=== PATIENT | female | born 1950 | race Caucasian/White ===

== ENCOUNTER → 2023-09-06 07:02 | Outpatient (REF) | payer MEDICARE, OTHER, SELFPAY ==
[2023-09-06 08:44] LABS: Blood Urea Nitrogen 36 mg/dl (7-17); Calcium 9.5 mg/dl (8.4-10.2); Carbon Dioxide 27 mmol/L (22-30); Chloride 101 mmol/L (98-107); Glucose 107 mg/dl (70-99); HDL Cholesterol 79 mg/dl; LDL Cholesterol, Calculated 86 mg/dl; Potassium 5.3 mmol/L (3.5-5.1); Sodium 138 mmol/L (135-145); Total Cholesterol 186 mg/dl (50-199); Triglyceride 105 mg/dl (10-149); Very Low Density Lipoprotein 21 mg/dl (0-30); eGFR > 60.00
== END ==
LOC: REG 07:02
PROVIDERS: ATTENDING PHYSICIAN Internal Medicine Cardiovascular Disease; FAMILY PHYSICIAN Physician Assistant Medical
DX: I10 Essential (primary) hypertension (principal)
CPT/HCPCS: 36415; 80048; 80061

== ENCOUNTER → 2023-09-20 14:37 | Outpatient (REF) | payer MEDICARE, OTHER, SELFPAY ==
[2023-09-20 15:53] LABS: Blood Urea Nitrogen 43 mg/dl (7-17); Calcium 9.3 mg/dl (8.4-10.2); Carbon Dioxide 27 mmol/L (22-30); Chloride 104 mmol/L (98-107); Glucose 102 mg/dl (70-99); Potassium 5.2 mmol/L (3.5-5.1); Sodium 140 mmol/L (135-145); eGFR > 60.00
== END ==
LOC: REG 14:37
PROVIDERS: ATTENDING PHYSICIAN Internal Medicine Cardiovascular Disease; FAMILY PHYSICIAN Physician Assistant Medical
DX: I10 Essential (primary) hypertension (principal)
CPT/HCPCS: 36415; 80048

== ENCOUNTER → 2024-02-05 11:51 | Outpatient (REF) | payer MEDICARE, OTHER, SELFPAY | LOC: DHSLP 11:51 | PROVIDERS: ATTENDING PHYSICIAN Internal Medicine Critical Care Medicine; FAMILY PHYSICIAN Physician Assistant Medical | DX: G47.33 Obstructive sleep apnea (adult) (pediatric) (principal) | CPT/HCPCS: 95800 ==

== ENCOUNTER → 2024-08-30 08:22 | Outpatient (REF) | payer MEDICARE, OTHER, SELFPAY ==
[2024-08-30 09:28] LABS: % Basophils 0.6 % (0-2); % Eosinophils 2.4 % (0-6); % Immature Granulocytes 0.3 % (0-0.5); % Lymphocytes 23.4 % (20.5-51.1); % Monocytes 8.1 % (1.7-9.3); % Neutrophils 65.2 % (42.2-75.2); Absolute Eosinophils 0.2 10^3/uL (0-0.7); Absolute Lymphocytes 1.7 10^3/uL (1.2-3.4); Absolute Monocytes 0.6 10^3/uL (0.1-0.6); Absolute Neutrophils 4.7 10^3/uL (1.4-6.5); Hematocrit 38.4 % (37.0-47.0); Mean Corp Hgb Conc. 33.9 g/dL (33.0-37.0); Mean Corpuscular Hgb 33.4 pg (27.0-31.0); Mean Corpuscular Volume 98.7 fL (81.0-99.0); Nucleated Red Blood Cells % 0 %; Platelet Count 229 10^3/uL (130-400); Red Blood Cell Count 3.89 10^6/uL (4.20-5.40); Red Cell Dist. Width 13.3 % (11.5-14.5); White Blood Cell Count 7.1 10^3/uL (4.8-10.8)
[2024-08-30 09:51] LABS: ALT (SGPT) 36 U/L (0-35); AST (SGOT) 30 U/L (14-36); Albumin 4.2 g/dl (3.5-5.0); Alkaline Phosphatase 65 U/L (38-126); Blood Urea Nitrogen 31 mg/dl (7-17); Calcium 9.3 mg/dl (8.4-10.2); Carbon Dioxide 29 mmol/L (22-30); Chloride 108 mmol/L (98-107); Glucose 105 mg/dl (70-99); HDL Cholesterol 79 mg/dl; LDL Cholesterol, Calculated 57 mg/dl; Potassium 5.9 mmol/L (3.5-5.1); Sodium 140 mmol/L (135-145); Total Bilirubin 0.6 mg/dl (0.2-1.3); Total Cholesterol 159 mg/dl (50-199); Total Protein 7.3 g/dl (6.3-8.2); Triglyceride 118 mg/dl (10-149); Very Low Density Lipoprotein 23 mg/dl (0-30); eGFR > 60.00
[2024-08-30 10:02] LABS: NT-proBNP 46.1 pg/ml
[2024-08-30 10:20] LABS: TSH Reflex To Free T4 6.68 uIU/ml (0.47-4.68)
[2024-08-30 10:49] LABS: Free T4 1.03 ng/dl (0.78-2.19)
== END ==
LOC: REG 08:22
PROVIDERS: ATTENDING PHYSICIAN Physician Assistant; FAMILY PHYSICIAN Physician Assistant Medical; REFERRING PHYSICIAN Internal Medicine Cardiovascular Disease
DX: M81.0 Age-related osteoporosis without current pathological fracture (principal); Z51.81 Encounter for therapeutic drug level monitoring; Z00.00 Encounter for general adult medical examination without abnormal findings; I10 Essential (primary) hypertension; E78.00 Pure hypercholesterolemia, unspecified; E66.01 Morbid (severe) obesity due to excess calories; M19.90 Unspecified osteoarthritis, unspecified site; R01.1 Cardiac murmur, unspecified
CPT/HCPCS: 36415; 80053; 80061; 82306; 83880; 84439; 84443; 85025

== ENCOUNTER → 2024-09-04 15:02 | Outpatient (REF) | payer MEDICARE, OTHER, SELFPAY ==
[2024-09-04 16:08] LABS: Blood Urea Nitrogen 45 mg/dl (7-17); Calcium 9.2 mg/dl (8.4-10.2); Carbon Dioxide 28 mmol/L (22-30); Glucose 118 mg/dl (70-99); Sodium 142 mmol/L (135-145); eGFR 52.73
[2024-09-04 16:14] LABS: Chloride 106 mmol/L (98-107)
[2024-09-05 09:46] LABS: Glycohemoglobin (HgbA1c) 5.6 % (4.0-5.6)
== END ==
LOC: REG 15:02
PROVIDERS: ATTENDING PHYSICIAN Internal Medicine Cardiovascular Disease; FAMILY PHYSICIAN Physician Assistant Medical
DX: E78.5 Hyperlipidemia, unspecified (principal); R73.01 Impaired fasting glucose
CPT/HCPCS: 36415; 80048; 83036

== ENCOUNTER → 2024-09-13 11:18 | Outpatient (REF) | payer MEDICARE, OTHER, SELFPAY ==
[2024-09-13 12:21] LABS: Blood Urea Nitrogen 38 mg/dl (7-17); Calcium 9.9 mg/dl (8.4-10.2); Carbon Dioxide 26 mmol/L (22-30); Chloride 108 mmol/L (98-107); Glucose 117 mg/dl (70-99); Potassium 4.9 mmol/L (3.5-5.1); Sodium 141 mmol/L (135-145); eGFR > 60.00
== END ==
LOC: REG 11:18
PROVIDERS: ATTENDING PHYSICIAN Internal Medicine Cardiovascular Disease; FAMILY PHYSICIAN Physician Assistant Medical
DX: I10 Essential (primary) hypertension (principal)
CPT/HCPCS: 36415; 80048

== ENCOUNTER → 2024-12-01 13:38 | Outpatient (REF) | payer MEDICARE, OTHER, SELFPAY | LOC: HWWDC 13:38 | PROVIDERS: ATTENDING PHYSICIAN Physician Assistant; FAMILY PHYSICIAN Physician Assistant Medical; REFERRING PHYSICIAN Obstetrics & Gynecology | DX: M81.0 Age-related osteoporosis without current pathological fracture (principal); Z12.31 Encounter for screening mammogram for malignant neoplasm of breast | CPT/HCPCS: 77063; 77067; 77080 ==

== ENCOUNTER 2025-02-01 02:59 | Emergency (ER) | payer MEDICARE, OTHER, SELFPAY ==
[2025-02-01] VITALS (9 sets, daily range): BP systolic 100–172; BP diastolic 58–80; BMI 57.7
[2025-02-01 05:30] LABS: Hematocrit 41.1 % (37.0-47.0); Hemoglobin 13.1 g/dL (12.0-16.0); Mean Corp Hgb Conc. 31.9 g/dL (33.0-37.0); Mean Corpuscular Volume 100.7 fL (81.0-99.0); Nucleated Red Blood Cells % 0 %; Platelet Count 241 10^3/uL (130-400); Red Cell Dist. Width 13.5 % (11.5-14.5)
[2025-02-01 05:54] LABS: ALT (SGPT) 34 U/L (0-35); AST (SGOT) 32 U/L (14-36); Albumin 4.3 g/dl (3.5-5.0); Alkaline Phosphatase 65 U/L (38-126); Blood Urea Nitrogen 28 mg/dl (7-17); Calcium 9.8 mg/dl (8.4-10.2); Carbon Dioxide 27 mmol/L (22-30); Chloride 105 mmol/L (98-107); Estimated Creatinine Clearance 78 ml/min; Glucose 124 mg/dl (70-99); Lipase 103 U/L (23-300); Potassium 4.1 mmol/L (3.5-5.1); Sodium 139 mmol/L (135-145); Total Protein 7.7 g/dl (6.3-8.2); eGFR > 60.00
[2025-02-01] MEDS: NSS 1000 IV (06:07)
--- NOTE | 2025-02-01 06:16 | EDRN ---
Patient updated on labs and status to being seen, call ferris in reach. no further complaints
[2025-02-01] MEDS: TORADOL 30 MG IV (09:59)
--- NOTE | 2025-02-01 11:34 | ED.GENMED ---
History of Present Illness
General
Chief Complaint: Abdominal Pain
Source: patient and spouse
Time Seen by Provider: 02/01/25 06:40
History of Present Illness
History of Present Illness:
Note:
CHIEF COMPLAINT(S)
Right-sided abdominal pain.
HISTORY OF PRESENT ILLNESS
The patient is a 74-year-old female who presented with right-sided abdominal pain that began at approximately 1:00 AM. She described the initial pain as severe but noted that it has since decreased in intensity. The pain is primarily located on the
right side. She reported nausea and emesis, which occurred at home when the pain commenced. The last meal she consumed was a steak dinner at around 5:00 PM.
Additional historian
Spouse states that they went out to eat at a restaurant last night
PAST MEDICAL AND SURGICAL HISTORY
The patient has a significant medical history of hypertension and diabetes. She has undergone a hysterectomy.
ADDITIONAL HISTORY OBTAINED FROM SOURCES OTHER THAN THE PATIENT
None specifically mentioned.
SOCIAL DETERMINANTS AFFECTING HEALTH
None specifically mentioned.
ALLERGIES
None reported.
MEDICATIONS
The patient takes diuretics ('water pills').
REVIEW OF SYSTEMS
- Gastrointestinal: Reports right-sided abdominal pain, nausea, and episodes of vomiting.
- Musculoskeletal: Reports leg edema.
PHYSICAL EXAM
General: Alert, no acute distress. Obese
Skin: Warm, dry.
Head: Normocephalic, atraumatic.
Neck: Supple, trachea midline.
Eyes, Ears, Nose, Mouth and Throat: Oral mucosa moist.
Respiratory: No respiratory distress noted.
Gastrointestinal: Mild tenderness noted in the right mid-abdomen. Abdomen nondistended. Negative Hernandez's. McBurney's point nontender
Cardiovascular: Normal peripheral perfusion.
Musculoskeletal: Noted bilateral lower extremity edema.
Neurological: Alert and oriented to person, place, time, and situation. No focal neurological deficit observed.
Psychiatric: Cooperative, appropriate mood and affect.
PROBLEM LIST
Acute: Right-sided abdominal pain, nausea, and vomiting.
Chronic: Hypertension, Diabetes Mellitus.
PLAN
1. Obtain abdominal CT scan to evaluate for possible gallbladder or appendiceal involvement.
2. Administer pain management as needed.
3. Await laboratory results prior to further management.
4. Monitor and address leg edema.
DIFFERENTIAL DIAGNOSIS
The differential diagnosis includes, in no particular order and is not limited to:
1. Cholecystitis
2. Appendicitis
3. Biliary colic
4. Pancreatitis
5. Bowel obstruction
6. Diverticulitis
7. Gastritis
8. Peptic ulcer disease
9. Renal colic
10. Hepatic abscess
CARE-UPDATE
02/01/25 - 11:36
The patient reports significant improvement with resolved pain. Recent ultrasound results indicated no gallstones present. No surgical intervention for gallbladder is required at this stage. Continue current management and monitor for any recurrence
of symptoms.
Disposition:
SUMMARY OF ENCOUNTER
The patient, a 74-year-old female, presented to the emergency department with right-sided abdominal pain that began after a steak dinner the previous evening. She experienced severe pain initially, accompanied by nausea and vomiting. The patients
history of hypertension and diabetes was considered in the evaluation. An abdominal ultrasound was performed, revealing cholelithiasis without any indication of gallbladder wall thickening or biliary tract dilatation, and a negative sonographic
Encinal sign. Laboratory tests including a CBC, CMP, and lipase were normal. Given the patients symptoms and test results, she was managed conservatively without surgical intervention.
DISPOSITION
The patient was discharged after symptom resolution and stabilization.
ASSESSMENT
Right-sided abdominal pain likely secondary to cholelithiasis without acute cholecystitis.
PLAN
1. Discharge with symptom management instructions.
2. Educate the patient on dietary modifications to help prevent future gallbladder attacks.
3. Advise the patient to return if symptoms worsen or new symptoms develop.
INDEPENDENT REVIEW OF LABS AND INTERPRETATION OF TESTS
- My independent review of CBC is normal white count and normal hemoglobin.
- My independent review of CMP is normal.
- My independent review of lipase is normal.
RADIOLOGY RESULTS
- My independent interpretation of the abdominal ultrasound is cholelithiasis without any evidence of gallbladder wall thickening or biliary tract dilatation, and a negative sonographic Encinal sign.
PATIENT EDUCATION AND COUNSELING
Provided education on dietary modifications to reduce the risk of future gallbladder attacks and advised on signs and symptoms that would warrant return to the emergency department.
FOLLOW-UP INSTRUCTIONS
Advised to follow up with primary care physician or a district branch manager for evaluation of cholelithiasis and further management options.
MEDICATION RECONCILIATION
The patient takes diuretics for hypertension.
MEDICAL DECISION MAKING
- Number and Complexity of Problems Addressed: Chronic conditions affecting care include hypertension and diabetes. Differential diagnoses considered were cholecystitis, appendicitis, biliary colic, pancreatitis, bowel obstruction, diverticulitis,
gastritis, peptic ulcer disease, renal colic, and hepatic abscess.
- Data:
Category 1:
- Non-emergency department records reviewed: No external records were reviewed.
- My independent interpretation of abdominal ultrasound confirms cholelithiasis without complications.
Category 2:
- Clinical information was obtained directly from patient history without an independent historian.
- Risk:
Consideration of Admission/Observation: Escalation of care including admission was considered given the complexity and risk of the patients presentation, but ultimately outpatient management with close follow-up was deemed safe due to work-up
reassuring, controlled symptoms, and patients stability.
DIAGNOSIS
Cholelithiasis (ICD-10: K80.20).
Past History
Past History
ED Past Medical History: HTN, Hypercholesterolemia and Hypothyroidism
ED Past Surgical History: None
Social History
Tobacco: Non-smoker
Alcohol: Daily (3-4 glasses wine daily)
Drug: None
Personal:
Living: with family
Phy Exam
Physical Exam
Physical Exam:
.
Course
Orders/Labs/Results
Orders:
Orders
02/01/25 03:21
IV Insert/Care/Rem.- Treatment PRN
02/01/25 05:18
Complete Blood Count/With Diff Urgent
Comprehensive Metabolic Panel Urgent
Lipase Urgent
02/01/25 06:07
0.9% Sodium Chloride 1000 ml [Nss] 1,000 ml IV BOLUS
02/01/25 07:17
CT Abd/Pel (IV only)-DH only Urgent
Comment:
Reason For Exam: R abd pain
02/01/25 07:30
Urinalysis Reflex To Culture Urgent
Date Specimen was Collected: 02/01/25
Time Specimen was Collected: 03:21
02/01/25 08:30
US Abdomen Complete/Upper Urgent
Comment:
Reason For Exam: R sided abd pain
02/01/25 09:56
Ketorolac [Toradol] 30 mg .ROUTE .STK-MED ONE
02/01/25 09:58
Ketorolac [Toradol] 30 mg IV NOW STA
Abnormal Lab Results
02/01/25
05:18
RBC 4.08 L 10^6/uL
(4.20-5.40)
MCV 100.7 H fL
(81.0-99.0)
MCH 32.1 H pg
(27.0-31.0)
MCHC 31.9 L g/dL
(33.0-37.0)
MPV 10.8 H fL
(7.4-10.4)
Absolute Neuts (auto) 7.5 H 10^3/uL
(1.4-6.5)
Absolute Lymphs (auto) 1.0 L 10^3/uL
(1.2-3.4)
Neutrophils % 81.2 H %
(42.2-75.2)
Lymphocytes % 11.0 L %
(20.5-51.1)
BUN 28 H mg/dl
(7-17)
Glucose 124 H mg/dl
(70-99)
02/01/25 05:18
02/01/25 05:18
Vital Signs
Initial and Last Documented VS:
Initial Vital Signs
Temp Pulse Resp BP Pulse Ox
97.3 F 55 26 100/71 97
02/01/25 03:17 02/01/25 03:17 02/01/25 03:17 02/01/25 03:17 02/01/25 03:17
Last Documented Vital Signs
Temp Pulse Resp BP Pulse Ox
97.3 F 55 26 172/71 96
02/01/25 03:17 02/01/25 03:17 02/01/25 03:17 02/01/25 10:00 02/01/25 10:00
*Pulse Oximetry
SaO2: 96
Oxygen Mode of Delivery: Room air
Patient hypoxic: no
*Critical Care Note
Total Time (30-74mins, 75-104mins- exclusive of procedures): Not Applicable
Data Reviewed
Source: patient
ED Attending Note
-
Portions of this chart may have been created with voice recognition software.� Occasional wrong word or��sound alike� substitutions may have occurred due to the inherent limitations of voice recognition software.
Discharge Plan
Departure
Patient Disposition: Home (Routine Discharge)
Date of Disposition: 02/01/25
Time of Disposition: 11:34
Patient with high blood pressure during this ER visit?: Yes
Discharge Problem:
Cholelithiasis
Instructions: Gallstones (DC), BLOOD PRESSURE
Prescriptions:
No Action
losartan 50 mg Tablet
100 mg PO DAILY
atorvastatin 40 mg Tablet
40 mg PO DAILY
levothyroxine 88 mcg Tablet
88 mcg PO DAILY
Vitamin D3
1,250 units PO DAILY
Prolia 60 mg/mL Syringe
60 mg SC [id number]
calcium carbonate [Calcium 600] 600 mg calcium (1,500 mg) Tablet
1,200 mg PO DAILY
amlodipine 5 mg Tablet
5 mg PO DAILY
furosemide
20 mg PO DAILY
metoprolol succinate
25 mg PO DAILY
acetaminophen [Tylenol] 325 mg Tablet
650 mg PO Q6H PRN (Reason: pain)
oxycodone 5 mg Tablet
2.5 mg PO Q4HPRN PRN (Reason: moderate pain) Qty: 0 0RF
oxycodone 5 mg Tablet
5 mg PO Q4HPRN PRN (Reason: severe pain when tolerating PO) Qty: 12 0RF
ibuprofen 600 mg tablet
600 mg PO Q6H PRN (Reason: mild pain) Qty: 1 0RF
Rx Instructions:
ok to take with tylenol. Take with food
Referrals:
Adán Valdez MD [Active, Surgical]
UNKNOWN - PT DOES,NOT KNOW [Family Provider]
Activity Restrictions/Additional Instructions:
Please avoid fatty foods. Please see surgery in the next 1 week for follow-up and reevaluation. Return immediately for worsening pain, fevers, vomiting, intractable pain or any other concerns.
Interventions
Interventions:
*Risk Screen - Suicide Last Done: 02/01/25 03:17
*General Assessment Last Done: 02/01/25 03:17
*Neglect/Abuse Screening Last Done: 02/01/25 03:17
*ED- Fall Risk Assessment Last Done: 02/01/25 03:17
*ED COVID-19 Vaccine History Last Done: 02/01/25 03:17
*ED Influenza Vaccine History Last Done: 02/01/25 03:17
YL-Hhryam-Ddlaiawhty Assessment Last Done: 02/01/25 06:09
Discharge Date and Time
Print Language: YORUBA
== END 2025-02-01 12:00 | disposition home or self-care (01) ==
LOC: EMR 02:59
PROVIDERS: Student in an Organized Health Care Education/Training Program; EMERGENCY PHYSICIAN Emergency Medicine
DX: K80.20 Calculus of gallbladder without cholecystitis without obstruction (principal); I10 Essential (primary) hypertension; E11.9 Type 2 diabetes mellitus without complications; E03.9 Hypothyroidism, unspecified; E78.00 Pure hypercholesterolemia, unspecified; Z90.710 Acquired absence of both cervix and uterus
CPT/HCPCS: 99284; 96374; 96361; 74177; 76700; 80053; 83690; 85025; Q9967

== ENCOUNTER 2025-02-09 06:17 | Day surgery (SDC) | payer MEDICARE, OTHER, SELFPAY ==
--- NOTE | 2025-02-05 17:24 | PTCARENOTE ---
Abn ECG, Dr. Solis notified, OK if stable, no new interventions requested.
[2025-02-09] VITALS (8 sets, daily range): BP systolic 138–159; BP diastolic 50–77; BMI 55.1
[2025-02-09] MEDS: TYLENOL 1000 MG PO (13:19)
[2025-02-09] MEDS: IC GREEN 2.5 MG IV (13:20)
[2025-02-09] MEDS: NORMOSOL-R/PLASMALYTE-A 1000 IV (13:26)
[2025-02-09] MEDS: HEPARIN 5000 UNITS SC (14:10)
--- NOTE | 2025-02-09 15:32 | OR.RPT ---
Operative Report
Operative Report
Primary Surgeon: Mariya
Assisting: Linda FLORENTINO
Pre-op Diagnosis: Biliary colic
Post-op Diagnosis: Chronic cholecystitis
Procedure Performed: Robot assisted laparoscopic cholecystectomy with intraoperative near infrared imaging of major extrahepatic bile ducts
Anesthesia Type: GETA
Specimen / Cultures: Gallbladder
Estimated Blood Loss: 20cc
Complications: None immediate
Operative Findings: Mild hepatomegaly; dense omental adhesions to fundus; small spillage of bile, no stones spilled; irrigated
DOS: 02/09/25
Indications: This 74F developed right upper quadrant/epigastric pain and on workup was found to have cholelithiasis, with normal liver enzymes and normal sized ducts. Laparoscopic cholecystectomy with robotic assist was elected.
Description of procedure: The patient was placed on the operating table in the supine position. General anesthesia was induced. A time-out was completed verifying correct patient, procedure, site, positioning, and special equipment prior to
beginning this procedure. An orogastric tube was placed. The abdomen was prepped and draped in the usual sterile fashion. A stab incision was made in left upper quadrant and the Veress needle was inserted. Proper position was confirmed by aspiration
and saline meniscus test. The abdomen was insufflated with carbon dioxide to a pressure of 12 mmHg. The patient tolerated insufflation well.
An 8mm optical trocar was then inserted in the left upper quadrant. The laparoscope was inserted and the abdomen inspected. No injuries from initial trocar placement or Veress needle insertion were noted. An umbilical/incisional hernia was noted
with bowel and omental contents. This was avoided. Additional 8mm trocars were then inserted in the following locations: above the umbilicus, right mid clavicular line at the level of the umbilicus and 6cm lateral to this on the right. The abdomen
was inspected and no abnormalities were found. The table was placed in the reverse Trendelenburg position with the right side up. The dome of the gallbladder was grasped with an atraumatic grasper and retracted over the dome of the liver. Dense
adhesions to the fundus from the omentum were taken down with blunt dissection and cautery. The infundibulum was grasped with an atraumatic grasper and retracted toward the right lower quadrant. This maneuver exposed Calot�s triangle. The cystic
duct and cystic artery were dissected out until the only two structures entering the gallbladder were these two structures. A large Calot's node was dissected down away from the artery. ICG was used to visualize the cystic duct and common duct and
anatomy was confirmed. The common duct was protected.
The cystic artery was controlled with bipolar and divided. The cystic duct was doubly clipped and divided. The gallbladder was dissected free from the liver bed. During this step the gallbladder wall broke down in one location and bile spilled out.
No stones spilled out. Hemostasis was assured and the gallbladder and contained stones were removed using an endoscopic retrieval bag placed through the umbilical port. The gallbladder was passed off the table as a specimen. The gallbladder fossa
was irrigated with copious sterile saline and hemostasis was again assured. There was no evidence of bleeding from the gallbladder fossa or cystic artery or leakage of the bile from the cystic duct stump. The umbilical trocar site was closed at the
fascial level laparoscopically with 2-0 PDS. Secondary trocars were removed under direct vision and noted to be hemostatic. The laparoscope was withdrawn and the umbilical trocar removed. The abdomen was allowed to collapse. The skin was closed with
subcuticular sutures of 4-0 monocryl and topical skin adhesive. The orogastric tube was removed.
The patient tolerated the procedure well and was taken to the postanesthesia care unit in stable condition.
[2025-02-09] MEDS: SUBLIMAZE 25 MCG IV ×2 (16:01→16:14)
[2025-02-09] MEDS: DUONEB 3 ML INH (16:07)
== END 2025-02-09 17:53 | disposition home or self-care (01) ==
LOC: SDS 06:17
PROVIDERS: ATTENDING PHYSICIAN Surgery
DX: K80.10 Calculus of gallbladder with chronic cholecystitis without obstruction (principal); K80.44 Calculus of bile duct with chronic cholecystitis without obstruction; R16.0 Hepatomegaly, not elsewhere classified; K66.0 Peritoneal adhesions (postprocedural) (postinfection)
CPT/HCPCS: 47562; 88304; 94640

== ENCOUNTER → 2025-03-21 09:46 | Outpatient (REF) | payer MEDICARE, OTHER, SELFPAY ==
[2025-03-21 11:05] LABS: Hematocrit 38.2 % (37.0-47.0); Hemoglobin 12.6 g/dL (12.0-16.0); Mean Corp Hgb Conc. 33.0 g/dL (33.0-37.0); Mean Corpuscular Volume 97.9 fL (81.0-99.0); Nucleated Red Blood Cells % 0 %; Platelet Count 226 10^3/uL (130-400); Red Cell Dist. Width 14.3 % (11.5-14.5)
[2025-03-21 11:53] LABS: Vitamin D, 25-OH*** 23.2 ng/mL (30-80)
[2025-03-21 12:05] LABS: ALT (SGPT) 27 U/L (0-35); AST (SGOT) 24 U/L (14-36); Albumin 3.9 g/dl (3.5-5.0); Alkaline Phosphatase 66 U/L (38-126); Blood Urea Nitrogen 18 mg/dl (7-17); Calcium 8.9 mg/dl (8.4-10.2); Carbon Dioxide 26 mmol/L (22-30); Chloride 105 mmol/L (98-107); Glucose 94 mg/dl (70-99); Magnesium 2.2 mg/dl (1.6-2.3); Potassium 5.0 mmol/L (3.5-5.1); Sodium 137 mmol/L (135-145); Total Protein 7.0 g/dl (6.3-8.2); eGFR > 60.00
== END ==
LOC: REG 09:46
PROVIDERS: ATTENDING PHYSICIAN Surgery; FAMILY PHYSICIAN Physician Assistant Medical; OTHER PHYSICIAN Internal Medicine; REFERRING PHYSICIAN Internal Medicine Cardiovascular Disease
DX: E03.9 Hypothyroidism, unspecified (principal); E66.01 Morbid (severe) obesity due to excess calories; R89.9 Unspecified abnormal finding in specimens from other organs, systems and tissues; Z48.89 Encounter for other specified surgical aftercare; I10 Essential (primary) hypertension; R06.09 Other forms of dyspnea; M81.0 Age-related osteoporosis without current pathological fracture
CPT/HCPCS: 36415; 80053; 82248; 82306; 83735; 83880; 84443; 85025

== ENCOUNTER → 2025-04-13 08:12 | Outpatient (REF) | payer MEDICARE, OTHER, SELFPAY | LOC: RCS 08:12 | PROVIDERS: ATTENDING PHYSICIAN Internal Medicine Cardiovascular Disease; FAMILY PHYSICIAN Physician Assistant Medical | DX: I10 Essential (primary) hypertension (principal); R06.00 Dyspnea, unspecified; R60.9 Edema, unspecified | CPT/HCPCS: 93306; Q9950 ==